=== PATIENT | male | born 1995 | race African-American/Black ===

== ENCOUNTER 2023-05-10 14:12 | Emergency (ER) | payer SELFPAY ==
[~2023-05-10] VITALS: Ht 182.9 cm; Wt 112.8 kg
[2023-05-10 14:13] VITALS: BP 160/100; TEMP 99.1; O2SAT 97
[2023-05-10 15:17] LABS: RSV AMPLIFICATION NEGATIVE (NEGATIVE)
[2023-05-10] MEDS ORDERED: BENZ200C70 PO (15:37)
== END 2023-05-10 16:04 | disposition home or self-care (01) ==
LOC: M ED 14:12
DX: U07.1 COVID-19 (principal); F17.200 Nicotine dependence, unspecified, uncomplicated; Z79.899 Other long term (current) drug therapy